=== PATIENT | female | born 1990 | race Caucasian/White ===

== ENCOUNTER 2019-02-28 18:00 | Emergency (ER) | payer OTHER ==
[2019-02-28 18:05] VITALS: BP 115/64; PULSE 90; TEMP 98.4; BMI 42.5
--- NOTE | 2019-02-28 18:05 | PDOC ---
Rapid Medical Evaluation Time Seen by Provider: 02/28/19 18:01 Medical Evaluation: 02/28/19 18:01 I have performed a brief in-person evaluation of this patient. The patient presents with a chief complaint of: employee - pt bodily fluid exposure to hands (saliva and blood) at [facility], denies any open wounds to hands. pt denies any PMH. pt states "supervisor inspection department told me we couldn't look in the chart for his history but i think they sent him here too." Pertinent physical exam findings: well appearing I have ordered the following: labs The patient will proceed to the ED for further evaluation.
--- NOTE | 2019-02-28 19:18 | PDOC ---
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 She was St. to ER for further evaluation. No wounds. Blood had been sent for exposure. GENERAL/CONSTITUTIONAL: No fever, weakness. dizziness HEAD, EYES, EARS, NOSE AND THROAT: No change in vision. No ear pain or discharge. No sore throat. CARDIOVASCULAR: No chest pain RESPIRATORY: No shortness of breath or cough GASTROINTESTINAL: No pain, nausea, vomiting, diarrhea or constipation GENITOURINARY: No dysuria MUSCULOSKELETAL: No neck or back pain SKIN: No rash NEUROLOGIC: No headache, vertigo, loss of consciousness, or loss of sensation. GENERAL: The patient is awake, alert, and fully oriented, in no acute distress. HEAD: Normal with no signs of trauma. EYES: Pupils equal, round and reactive to light, sclera anicteric, conjunctiva clear. ENT: pharynx: no erythema, no exudate, uvula midline NECK: supple CHEST: clear, nontender, rr EXTREMITIES: Normal range of motion, no edema. NEUROLOGICAL: Normal speech, normal gait. SKIN: Warm, Dry Past History - Past Medical History Allergies/Adverse Reactions: Allergies Allergy/AdvReac Type Severity Reaction Status Date / Time NSAIDS (Non-Steroidal Allergy Verified 02/28/19 18:39 Anti-Inflamma Penicillins Allergy Verified 02/28/19 18:39 Home Medications: Ambulatory Orders NK [No Known Home Medication] 02/28/19 COPD: No - Suicide/Smoking/Psychosocial Hx Smoking History: Never smoked Information on smoking cessation initiated: No Hx Alcohol Use: No Drug/Substance Use Hx: No *Physical Exam - Vital Signs Last Vital Signs Temp Pulse Resp BP Pulse Ox 98.4 F 90 19 115/64 100 02/28/19 18:02 02/28/19 18:02 02/28/19 18:02 02/28/19 18:02 02/28/19 18:02 Progress Note - Progress Note Progress Note: [phone] Medical Decision Making - Medical Decision Making 02/28/19 19:42 Healthy 28-year-old female who was sent from [facility] due to getting saliva and blood on her from a patient there. Review of the patient's record shows that his last HIV test in the record wasn't 2014 he was negative, the doctor who admitted into detox yesterday wrote that he had a negative test and 01/24 but that is not documented. His HIV test pending in the computer. There is no hepatitis screening in the system. Pt is in in the ER being evaluated at physician will add hepatitis screening. Review of the employees medical record shows that she is reactive to hepatitis B surface antibody. Pt is awaiting her HIV results prior to being discharged. No indication to start prophylaxis given no open wounds Discussed with the spinning supervisor Juliana Boyd at [facility] given this is a holiday weekend, and she will follow results from patient and employee over the weekend 02/28/19 20:47 hiv on employee negative *DC/Admit/Observation/Transfer Diagnosis at time of Disposition: Exposure to blood-borne pathogen - Discharge Dispostion Disposition: HOME Condition at time of disposition: Stable - Referrals - Patient Instructions Additional Instructions: Follow-up with your spinning supervisor, Juliana regarding restive results and with employee health on Sunday regarding any other evaluations and results - Post Discharge Activity Forms/Work/School Notes: Back to Work
[2019-03-04 14:09] LABS: HBsAG SCREEN Negative (Negative)
== END 2019-02-28 20:52 | disposition home or self-care (01) ==
LOC: JERFT 18:00
DX: Z77.21 Contact with and (suspected) exposure to potentially hazardous body fluids (principal); X58.XXXA Exposure to other specified factors, initial encounter; Y93.F9 Activity, other caregiving; Y92.238 Other place in hospital as the place of occurrence of the external cause; Y99.0 Civilian activity done for income or pay
CPT/HCPCS: 36415; 86317; 86706; 86803; 87340; 87389; 99281-25

== ENCOUNTER 2022-05-08 15:33 | Emergency (ER) | payer OTHER ==
[2022-05-08 16:14] VITALS: BP 112/73; PULSE 74; RESP 16; TEMP 98.2; BMI 30.8
== END 2022-05-08 19:10 | disposition home or self-care (01) ==
LOC: JERFT 15:33
DX: M21.611 Bunion of right foot (principal)
CPT/HCPCS: 73630-TC-RT-FY; 93971-TC; 99284-25